=== PATIENT | male | born 1980 | race Caucasian/White ===

== ENCOUNTER 2024-12-19 19:43 | Inpatient (IN) | payer OTHER, SELFPAY ==
[2024-12-19] VITALS (7 sets, daily range): BP systolic 142–187; BP diastolic 73–106; BMI 35.0; BMI 34.3
[2024-12-19 13:45] LABS: Glucose - Point of Care 196 mg/dl (70-99)
--- NOTE | 2024-12-19 16:05 | ED.GENMED ---
History of Present Illness
General
Chief Complaint: Fever
Source: patient
Exam Limitations: none
Time Seen by Provider: 12/19/24 15:25
Nursing documentation reviewed up to this point in time: agreed with
History of Present Illness
History of Present Illness:
44-year-old male incarcerated for about 10 days previous drug use none for years he states previous drinker none for greater than 10 days insulin-dependent diabetic presents with shakes possible chills possibly fevers, he has turner to the bottom of
his feet his neuropathy was walking on concrete/asphalt without any shoes-is unclear if he was on antibiotics at some point, states he did go to urgent care, states he feels short of breath, achy, like he is withdrawing from drugs though he denies
using drugs
Patient apparently was given medication at the senior living including antibiotics and referred here
Patient apparently was walking around barefoot in the senior living the past few days, then developed symptoms today
Review of Systems
Review of Systems
All Other Systems: Not applicable
Constitutional: Reports fever, fatigue, sleep disturbance and chills
EENT: Reports no symptoms
Respiratory: Reports trouble breathing
Cardiac: Reports no symptoms
ABD/GI: Reports no symptoms
Musculoskeletal: Reports muscle stiffness
Phy Exam
Physical Exam
Physical Exam:
Physical Exam
General: Chronically ill shaking
Neck: Dry membranes
Heart: Regular
Lungs: no acute respiratory distress. No wheeze
Abdomen: Soft nontender
Neuro: alert and oriented. no focal neurological deficits
Skin: no rash
Psychiatric: Somewhat disheveled cooperative
Extremities: There is a partial-thickness eschar plantar surface bilateral feet
Course
Orders/Labs/Results
Orders:
Orders
12/19/24 Dinner
2000 calorie (17 carb) Diabetic
At Your Request: Full Participation
12/19/24 15:49
Cardiac Monitoring- Treatment ONCE
12/19/24 15:50
Electrocardiogram (*1) Urgent
Reason for Study: Other
Other Reason for Exam: sepsis
EKG- Treatment ONCE
CR Chest - 2 Views Urgent
Comment:
Reason For Exam: chillls
Foot, Left 3 View [CR Foot - Left Min 3 Views] Urgent
Comment:
Reason For Exam: infection
Foot, Right 3 View [CR Foot - Right Min 3 Views] Urgent
Comment:
Reason For Exam: infection
12/19/24 15:51
Rectal Temp- Treatment ONCE
0.9% Sodium Chloride 1000 ml [Nss] 1,000 ml IV BOLUS
Acetaminophen [Tylenol] 1,000 mg PO NOW STA
12/19/24 16:09
Add On- LAB Urgent
Tests Added?: cpk
12/19/24 16:58
Complete Blood Count/With Diff Urgent
Comprehensive Metabolic Panel Urgent
Creatine Phosphokinase Urgent
Comment: ADD ON
Ferritin Urgent
Comment: ADD ON
Folate Urgent
Comment: ADD ON
Iron Urgent
Comment: ADD ON
Lactic Acid Q4H
Comment: CANCEL 2nd LACTIC ACID IF 1st LACTIC ACID IS LESS THAN 2
Total Iron Binding Urgent
Comment: ADD N
Vitamin B12 Urgent
Comment: ADD ON
Blood Culture Q30M
ANCA Source: Blood/Venous
Specimen Description:
Blood Culture Q30M
ANCA Source: Blood/Venous
Specimen Description:
Influenza A+B Rapid Molecular Urgent
ANCA Source: Nasal Swab
Specimen Description:
12/19/24 17:36
Fentanyl, Urine Urgent
Urinalysis Reflex To Culture Urgent
Date Specimen was Collected: 12/19/24
Time Specimen was Collected: 17:34
Urine Drug Abuse Screen Urgent
Date Specimen was Collected: 12/19/24
Time Specimen was Collected: 17:34
Urine Microscopic Reflex Cult Urgent
12/19/24 18:29
Wound Dressing- Treatment ONCE
Location of Wound: Feet
diazePAM [Valium Injection] 5 mg IV NOW STA
12/19/24 18:53
Piperacillin/Tazo 3.375 Gram [Zosyn] 3.375 gram in 50 ml IV NOW
12/19/24 19:19
Admit/Transfer Patient As Directed
Co-Sign Provider:
Level of Care: Inpatient admission
Assign to:: Telemetry
Physician / Group: Susie
Diagnosis: Foot Wounds
Reason for Telemetry: Arrhythmia
Date to Stop Telemetry: 12/22/24
Time to Stop Telemetry: 11:00
Reason for Hospitalization: IV abx
Expected length of stay greater than two midnights?: Yes
ELOS- Estimated Length of Stay in days: 4
I certify the patient meets the requirements for IP care: Yes
PRN Pain Medication Management As Directed
May give lesser potent ordered pain med per pt: Yes
preference::
Protocol:: Medication orders for pain may be administered in a
manner that supports deferring to patient preference
when the pt is:
- Requesting an ordered lesser potent pain medication.
Least to most potent pain medications are defined
as: acetaminophen < NSAID < tramadol < opioids
(morphine, oxycodone, hydromorphone).
- Requesting a lesser dose of the same medication IF
ORDERED.
- Requesting a less intrusive route of administration
if both routes are prescribed by the provider (PO <
IV).
12/19/24 19:22
Code Status As Directed
Resuscitation Status: Full Code
12/19/24 20:33
Acetaminophen [Tylenol] 650 mg PO Q4HPRN PRN
Dextrose 50%-Water [Dextrose 50% Syringe] 12.5 grams IV [id number] PRN
Glucagon [GlucaGen] 1 mg IM PRN PRN
Ketorolac [Toradol] 15 mg IV Q6HPRN PRN
VANCOMYCIN Pharmacy to Dose [VANCOCIN Pharmacy to Dose] 1 each Pharmacy To Prepare [Call Pharmacy To Prepare] 0 ml IV PER PROTOCOL
12/19/24 20:33
PODIATRY CONSULT Routine
Consulting Provider: Jose Snyder
Was physician already notified: Yes
WOUND/OSTOMY CONSULT Routine
Reason for Consult: bilateral foot wounds
Activity As Directed
Activity Level: Bedrest
Bedside Glucose Monitoring As Directed
Frequency: AC&HS
Additional Instructions:: Change to q6h if pt on TPN, tube feeding or not eating
I&O [Intake/ Output] As Directed
Frequency: q12h
Vital Signs As Directed
Frequency: Per unit guidelines
DX Deep Vein Thrombosis Video Routine
12/20/24 00:00
Piperacillin/Tazo 3.375 Gram [Zosyn] 3.375 gram in 50 ml IV Q6H
12/20/24 07:01
Basic Metabolic Panel IN AM
Complete Blood Count/No Diff IN AM
Glycohemoglobin (HgbA1c) IN AM
Magnesium IN AM
12/20/24 07:30
Insulin Aspart Corrective Mod [Novolog Flexpen-Moderate Resistance] See Protocol SC AC
12/20/24 08:00
Escitalopram Oxalate [Lexapro] 20 mg PO DAILY
Lisinopril [Zestril] 40 mg PO DAILY
Naltrexone HCl [Revia] 50 mg PO DAILY
12/20/24 18:00
Enoxaparin Sodium [Lovenox] 40 mg SC QPM
12/22/24 11:00
DC Protocol for Telemetry ONCE
Abnormal Lab Results
12/19/24 12/19/24 12/19/24
13:43 16:58 17:36
RBC 3.75 L 10^6/uL
(4.70-6.10)
Hgb 11.7 L g/dL
(13.0-18.0)
Hct 34.1 L %
(39.0-52.0)
MCH 31.2 H pg
(27.0-31.0)
Absolute Lymphs (auto) 0.7 L 10^3/uL
(1.2-3.4)
Neutrophils % 79.6 H %
(42.2-75.2)
Lymphocytes % 13.7 L %
(20.5-51.1)
Chloride 110 H mmol/L
(98-107)
Glucose 185 H mg/dl
(70-99)
Iron 38 L ug/dl
(49-181)
TIBC 240 L ug/dl
(261-462)
% Saturation 15 L %
(20-50)
Alkaline Phosphatase 140 H U/L
(38-126)
Urine Ketones 1+ A
(Negative)
Ur Occult Blood Reflex 3+ A
(Negative)
Urine RBC 11-15 A /HPF
(0-2)
Urine Bacteria (Reflex) Few A
(Negative)
Urine Albumin (Reflex) 2+ A
(Neg - Trace)
Ur Buprenorphine Positive H
(Negative)
U Marijuana (THC) Screen Positive H
(Negative)
POC Glucose 196 H mg/dl
(70-99)
12/19/24 16:58
12/19/24 16:58
Vital Signs
Initial and Last Documented VS:
Initial Vital Signs
Temp
98.2 F
12/19/24 13:39
Last Documented Vital Signs
Temp Pulse Resp BP Pulse Ox
99.0 F 78 20 176/107 100
12/21/24 03:00 12/21/24 03:00 12/21/24 03:00 12/21/24 03:00 12/21/24 03:00
MDM/Problems Addressed
Differential Diagnosis Includes:
Infection and electrolyte abnormality drug withdrawal
MDM/Problems Addressed:
Shakes diabetes foot wounds
*Pulse Oximetry
SaO2: 99
Oxygen Mode of Delivery: Room air
Patient hypoxic: no
*Critical Care Note
Total Time (30-74mins, 75-104mins- exclusive of procedures): Not Applicable
Update Note
Update Note:
Update x-rays noted labs noted patient does have some warmth on the plantar dorsum of his foot certainly high risk for infection being diabetic in [facility]
ED Attending Note
-
Portions of this chart may have been created with voice recognition software.� Occasional wrong word or��sound alike� substitutions may have occurred due to the inherent limitations of voice recognition software.
Discharge Plan
Departure
Patient Disposition: Admit
Date of Disposition: 12/19/24
Time of Disposition: 18:54
Admit to: Med/Surg
Presentation/result/management discussed w/ accepting MD/DO: Hospitalist
Patient with high blood pressure during this ER visit?: No
Condition: Fair
Discharge Problem:
Diabetic foot infection
Interventions
Interventions:
*Risk Screen - Suicide Last Done: 12/19/24 16:00
*General Assessment Last Done: 12/19/24 13:39
*Neglect/Abuse Screening Last Done: 12/19/24 16:00
*ED COVID-19 Vaccine History Last Done: 12/19/24 22:13
*Nursing Disposition Last Done: 12/19/24 20:38
ED- Neurological Assessment Last Done: 12/19/24 13:53
ED-Skin Assessment Last Done: 12/19/24 13:53
Discharge Date and Time
Discharge Date/Time: 12/19/24 20:38
[2024-12-19] MEDS: TYLENOL 1000 MG PO (17:07)
[2024-12-19] MEDS: NSS 1000 IV (17:07)
[2024-12-19 17:31] LABS: Hematocrit 34.1 % (39.0-52.0); Hemoglobin 11.7 g/dL (13.0-18.0); Mean Corp Hgb Conc. 34.3 g/dL (33.0-37.0); Mean Corpuscular Volume 90.9 fL (80.0-94.0); Nucleated Red Blood Cells % 0 % (-); Platelet Count 198 10^3/uL (130-400); Red Cell Dist. Width 12.0 % (11.5-14.5)
[2024-12-19 17:40] LABS: ALT (SGPT) 29 U/L (0-50); AST (SGOT) 39 U/L (17-59); Albumin 3.5 g/dl (3.5-5.0); Alkaline Phosphatase 140 U/L (38-126); Blood Urea Nitrogen 14 mg/dl (9-20); Calcium 9.6 mg/dl (8.4-10.2); Carbon Dioxide 22 mmol/L (22-30); Chloride 110 mmol/L (98-107); Estimated Creatinine Clearance > 125 ml/min; Glucose 185 mg/dl (70-99); Potassium 4.3 mmol/L (3.5-5.1); Sodium 139 mmol/L (135-145); Total Protein 7.4 g/dl (6.3-8.2); eGFR > 60.00
[2024-12-19] MEDS: VALIUM INJECTION 5 MG IV (19:13)
[2024-12-19] MEDS: ZOSYN 50 IV (19:17)
[2024-12-19 19:23] LABS: Urine Character Clear (Clear)
--- NOTE | 2024-12-19 19:29 | HPS.HSE ---
Family Physician
-
Family Physician: Facility [facility]
Chief Complaint
-
Fever and Chills
History of Present Illness
Patient is a 44 y/o male past medical history of hypertension and insulin-dependent diabetes mellitus with diabetic neuropathy who presents with fever and chills. Patient states about 2 weeks ago he walked on very hot asphalt in bare feet resulting
in significant turner to his feet. Patient has now been incarcerated at [facility] for the past 10 days. Today patient developed significant rigors with generalized weakness and shortness of breath. Patient notes he has been walking
around the correction barefoot for the past few days. Appears orders were written for IV antibiotics to start at the correction, but order indicates still pending.
Medical History
Past Medical History
Past Medical History: Reports Other
Additional Past Medical History:
Diabetes Mellitus, Insulin-Dependent
Essential Hypertension
Hyperlipidemia
Past Surgical History: Reports Other
Additional Past Surgical History:
Bilateral Leg Fracture Repairs
Social History
Tobacco: Smoker (Occasional cigarettes)
Alcohol: Other (Prior to incarceration patient reports 1 bottle of Vodka per day, but states no alcohol for past 10 days)
Drug: Former User (Denies any drug use for several years)
Family History
Family History: Not pertinent
Allergies / Home Medications
Allergies reflects when Allergies were last updated in [employer].
Home Medications with original date entered in [employer]
Allergy/Medication List:
Allergies
Allergy/AdvReac Type Severity Reaction Status Date / Time
No Known Allergies Allergy Unverified 12/19/24 13:44
Home Medications
acetaminophen 325 mg tablet (Tylenol) 650 mg PO BID 12/19/24
ascorbic acid (vitamin C) 1,000 mg tablet (Vitamin C) 1,000 mg PO DAILY 12/19/24
benazepril 40 mg tablet 40 mg PO DAILY 12/19/24
cefepime 2 gram solution for injection 2 g IV Q12H 12/19/24
escitalopram oxalate 20 mg tablet (Lexapro) 20 mg PO DAILY 12/19/24
ibuprofen 600 mg tablet 600 mg PO BID 12/19/24
insulin glargine 100 unit/mL (3 mL) subcutaneous pen (Lantus Solostar U-100 Insulin) 10 unit SC HS 12/19/24
naltrexone 50 mg tablet 50 mg PO DAILY 12/19/24
vancomycin 1,000 mg intravenous injection 1,200 g IV BID 12/19/24
zinc 100 mg tablet 50 mg PO DAILY 12/19/24
Review of Systems
-
A 12 point ROS was completed and negative except as noted: Yes
Constitutional: Reports Chills
Respiratory: Reports Trouble Breathing; Denies Cough
Cardiac: Denies Chest Pain or Palpitations
Abdomen/GI: Denies Abdominal Pain, Nausea or Vomiting
Physical Exam
Vital Signs
Vital Signs
Temp Pulse Resp BP Pulse Ox
99.7 F 90 25 142/73 99
12/19/24 17:25 12/19/24 19:00 12/19/24 19:00 12/19/24 16:44 12/19/24 16:06
Physical Exam
General: Well Developed, Well Nourished and Chills (Appears Ill)
HEENT: Moist mucous membranes and Other (Poor Dentition)
Respiratory: Clear and Non Labored Respirations
Cardiac: S1/S2, Regular Rhythm and Tachycardia (Slightly)
GI: Soft and Non Tender
Rectal: Deferred by Provider
Musculoskeletal: No Clubbing, No Cyanosis and No Edema
Skin: Warm, Dry and Other (Partial thickness wounds bilateral planter areas)
Neuro: Awake, Alert, Oriented and Nonfocal/grossly intact
Psych: Anxious
Laboratory Results
-
12/19/24 16:58
12/19/24 16:58
Laboratory Results
Lactic Acid 1.5 mmol/L (0.7-2.0) 12/19/24 16:58
Total Bilirubin 0.8 mg/dl (0.2-1.3) 12/19/24 16:58
AST 39 U/L (17-59) 12/19/24 16:58
ALT 29 U/L (0-50) 12/19/24 16:58
Alkaline Phosphatase 140 U/L (38-126) H 12/19/24 16:58
Data Reviewed
-
Diagnostic Radiology: Report Reviewed by me
Lab Data: Labs Reviewed by me
Impression/Plan
-
Infected Foot Wounds
-Consult Podiatry
-Consult Wound Care
-Continue vancomycin and Zosyn
-Await blood cultures
Alcohol Use Disorder
-Patient reports no alcohol since incarceration 10 days ago, but previous was drinking one bottle of vodka per day
-Continue naltrexone
Insulin-Dependent Diabetes Mellitus
-Check HgbA1c
-Continue Lantus
-Monitor sugars and continue coverage insulin
Essential Hypertension
-Continue benazepril with hold parameters
DVT proph: Lovenox
Code Status: Full Code
[2024-12-19 19:49] LABS: Urine Squamous Cell >30 /LPF (Few)
--- NOTE | 2024-12-19 20:08 | W.PN.UPDATE ---
Update Note
Progress Note Update
This is an addendum to H&P written by Nely Lopez on 12/19/2024. �Patient seen and examined independently with PA.
44-year-old male past medical history of hypertension, diabetes, diabetic neuropathy, prior fractures of fibula status post graeme, marijuana user, alcohol user, presenting after he walked on hot asphalt barefoot 2 weeks ago and burned the bottom of
his feet. �Incarcerated for past 10 days. �Today having rigors, sweats with severe wounds on plantar surface of bilateral feet. �Was drinking 1 bottle of vodka every day prior to incarceration 10 days ago as well as using marijuana.
Foot x-ray showed likely old healed bilateral fractures.
Patient not septic but with concern�for infected diabetic wounds of lower extremities.
Blood cultures pending. �Vancomycin/Zosyn. �Podiatry consulted. �Wound care.
Urine drug screen positive for buprenorphine and marijuana.
Patient out of the window for alcohol withdrawal.
[2024-12-19 20:25] LABS: Iron 38 ug/dl (49-181)
[2024-12-19 20:34] LABS: Total Iron Binding Capacity 240 ug/dl (261-462)
[2024-12-19 21:01] LABS: Ferritin 125.0 ng/ml (17.9-464.0)
[2024-12-19 21:33] LABS: Folate 13.1 ng/ml (2.76-20); Vitamin B12 796 pg/ml (239-931)
--- NOTE | 2024-12-19 22:32 | PHA.VAN.IN ---
Assessment
- Assessment
Renal Function: Appears similar to baseline
Concomitant Antimicrobials: ZOSYN, Home med: VANCO 1250 MG & CEFEPIME 2GM IV Q12H (last dose am 12/19)
Plan
- Plan
Initial / Loading Dose: VANCO 1250 MG IV ~2300
Monitoring: VANCO RANDOM ON 12/20 WITH AM LABS
Pharmacokinetics Vancomycin I
- -
Patient Age: 44
Patient Sex: Male
Vancomycin Day #: 1
Indication: Skin And Soft Tissue
Requesting Provider: Nasir Infante
Height / Weight:
Height 6 ft 5 in
Actual Weight 131.088 kg
Pertinent Past Medical History: Diabetes Mellitus
- Vital Signs / Lab Results
Temp Pulse Resp BP Pulse Ox
97.3 F 86 18 186/101 98
12/19/24 21:07 12/19/24 21:07 12/19/24 21:07 12/19/24 21:07 12/19/24 21:07
Lab Results - Hematology
12/19/24
16:58
WBC 5.1
Lab Results - Chemistry
12/19/24
16:58
BUN 14
Creatinine 1.0
Estimated Creat Clear > 125
Albumin 3.5
12/19/24 12/19/24
16:00 16:58
Lactic Acid Cancelled 1.5
Lab Results - Urine
12/19/24
17:36
Urine Nitrite (Reflex) Negative
Leukocyte Esterase Rfl Negative
Urine WBC (Reflex) 3-5
Ur Squamous Epith Cells >30
Urine Bacteria (Reflex) Few A
Microbiology Results
12/19/24 16:58 Influenza Types A & B (MARCELINO) - Final
Nasal Swab Negative for Influenza A & B, NAAT
Negative results must be combined with clinical observations
and patient history.
Nucleic Acid Amplification test (NAAT)performed on the
[employer] NOW platform.
[2024-12-19] MEDS: LANTUS 0.1 UNITS SC (23:14)
[2024-12-19] MEDS: VANCOCIN 275 MG IV (23:14)
[2024-12-19] MEDS: TORADOL 15 MG IV (23:19)
[2024-12-19] MEDS: APRESOLINE 5 MG IV (23:52)
[2024-12-19 23:59] LABS: Glucose - Point of Care 154 mg/dl (70-99)
[2024-12-20] VITALS (9 sets, daily range): BP systolic 165–193; BP diastolic 91–140; PULSE 89; O2SAT 98
[2024-12-20] MEDS: NICODERM TRANSDERMAL 14 MG TRANSDERM ×2 (00:34→08:40)
[2024-12-20] MEDS: ZOSYN 50 IV ×5 (00:34→22:57)
[2024-12-20] MEDS: TYLENOL 650 MG PO ×2 (02:34→21:35)
[2024-12-20] MEDS: TRANDATE 5 MG IV (04:34)
[2024-12-20 06:43] LABS: Glucose - Point of Care 172 mg/dl (70-99)
--- NOTE | 2024-12-20 06:44 | PTCARENOTE ---
Pt c/o unable to sleep throughout the beginning and middle of shift. Fell asleep around 4AM. Woke at 6AM vomiting, visibly tremulous, c/o stomach pain/nausea. HR up to high 90s, BP 170/95 (had received hydralazine and labetalol previously for HTN).
Afebrile 97.6, but c/o feeling hot. Continues to report last drink was 2 weeks ago, denies any other substance use. MSAS at this time scoring a 5. All this relayed to PRIVATE CLIENT ADVISOR, ordered alchol protocol. Ativan dose adminsitered per MSAS score.
[2024-12-20] MEDS: ATIVAN 1 MG PO ×2 (06:49→22:52)
--- NOTE | 2024-12-20 07:56 | PHA.VAN.FU ---
Addendum entered and electronically signed by Katy Soliz [facility] 12/20/24 11:29:
CORRECTION- MAINTENANCE DOSE VANCO 1500 MG Q12H
Original Note:
Vancomycin Assessment / Plan
- Assessment
Renal Function: Stable
WBC's are: WNL
In the past 24 hrs, patient has been: Afebrile
Concomitant Antimicrobials: piperacillin/tazobactam
- Dosing Plan
Adjust Regimen to: vancomycin 1750 mg x 1 followed by vancomycin 1750 mg Q12h
New Regimen Predicts: AUC (465), Peak (29.4), Trough (11.7)
Dosing Comments: Vd-0.6
- Monitoring Plan
No level(s) ordered at this time: consider levels in next few days
- Follow Up
Pharmacy will continue to follow.
Vancomycin Follow UP
- -
Patient Age: 44
Patient Sex: Male
Vancomycin Day #: 2
Indication: Skin And Soft Tissue
Requesting Provider: Nasir Infante
Height / Weight:
Height 6 ft 5 in
Actual Weight 131.088 kg
IBW in k.1
Adjusted BW in k.9
Pertinent Past Medical History: Diabetes Mellitus
- Vital Signs / Lab Results
Temp Pulse Resp BP Pulse Ox
97.6 F 89 22 170/95 99
12/20/24 06:35 12/20/24 06:35 12/20/24 06:35 12/20/24 06:35 12/20/24 06:35
Lab Results - Hematology
12/19/24
16:58
WBC 5.1
Lab Results - Chemistry
12/19/24
16:58
BUN 14
Creatinine 1.0
Estimated Creat Clear > 125
Albumin 3.5
12/19/24 12/19/24
16:00 16:58
Lactic Acid Cancelled 1.5
Lab Results - Urine
12/19/24
17:36
Urine Nitrite (Reflex) Negative
Leukocyte Esterase Rfl Negative
Ur Squamous Epith Cells >30
Microbiology Results
12/19/24 16:58 Influenza Types A & B (MARCELINO) - Final
Nasal Swab Negative for Influenza A & B, NAAT
Negative results must be combined with clinical observations
and patient history.
Nucleic Acid Amplification test (NAAT)performed on the
[employer] NOW platform.
[2024-12-20 08:02] LABS: Hematocrit 32.8 % (39.0-52.0); Hemoglobin 11.2 g/dL (13.0-18.0); Mean Corp Hgb Conc. 34.1 g/dL (33.0-37.0); Mean Corpuscular Volume 90.6 fL (80.0-94.0); Platelet Count 171 10^3/uL (130-400); Red Cell Dist. Width 12.1 % (11.5-14.5)
[2024-12-20 08:08] LABS: Glucose - Point of Care 217 mg/dl (70-99)
[2024-12-20 08:27] LABS: Blood Urea Nitrogen 12 mg/dl (9-20); Calcium 9.0 mg/dl (8.4-10.2); Carbon Dioxide 23 mmol/L (22-30); Chloride 108 mmol/L (98-107); Estimated Creatinine Clearance 118 ml/min; Glucose 170 mg/dl (70-99); Magnesium 1.6 mg/dl (1.6-2.3); Potassium 4.0 mmol/L (3.5-5.1); Sodium 140 mmol/L (135-145); eGFR > 60.00
[2024-12-20] MEDS: VANCOCIN 535 MG IV (08:38)
[2024-12-20] MEDS: ZESTRIL 40 MG PO (08:39)
[2024-12-20] MEDS: REVIA 50 MG PO (08:39)
[2024-12-20] MEDS: LEXAPRO 20 MG PO (08:39)
[2024-12-20] MEDS: THIAMINE INJECTION 200 MG IV ×2 (08:41→21:35)
[2024-12-20] MEDS: NOVOLOG FLEXPEN-MODERATE RESISTANCE 3 UNITS SC ×2 (08:45→12:53)
--- NOTE | 2024-12-20 08:50 | W.PN.HOSP.TC ---
Today's Communication/Plan
-
See PN
Assessment / Plan
Assessment / Plan
44yo M from [facility] after >10 days of incarceration with PMHX of anxiety, alcohol abuse, DM brought with chills for 2 days, he previously burned soles of his feet while walking barefoot on hot asphalt pavement. Also managed for signs of alcohol
withdrawal
A/P:
#B/L wound of soles of the feet
XR without deep wounds
Vanco/Zosyn
folow Bcx
Podiatry consult
#Alcohol abuse with withdrawal
cannot exclude withdrawal from in-[facility] protocol too
Phenobarb taper
MSAS and Ativan PRN
Thiamine/FOlate
D5 IVF initially
#Leukopenia
check for HIV - patient agreeable
#Elevated alk.phos
minimal abd tenderness
US RUQ US reasonable
follow LFT
#Mild anemia of acute disease
anemia w/u neg for deficiencies
#Essential HTN
#DM type 1
Accuchecks, insulin SS, cont lantus, DM diet
cont janak emeds
DVT ppx lovenox
FUll code
I have spent at least 58min reviewing chart, test results, communication with consultants and providing direct patient care
Anticipated Discharge: > 48 hours
Subjective/Interval History
-
Date of Service: December 20, 2024
Objective Data
-
Labs:
Laboratory Results
12/20/24
07:01
WBC 4.4 L
Hgb 11.2 L
Hct 32.8 L
Plt Count 171
Sodium 140
Potassium 4.0
Chloride 108 H
Carbon Dioxide 23
BUN 12
Creatinine 1.2
Glucose 170 H
Calcium 9.0
Vital Signs:
Vital Signs
Temp Pulse Resp BP Pulse Ox
98.4 F 87 18 180/111 98
12/20/24 07:00 12/20/24 07:00 12/20/24 07:00 12/20/24 07:00 12/20/24 07:00
I&O
12/19/24 12/20/24 12/21/24
06:59 06:59 06:59
Intake Total 1440 / 1440
Balance 1440 / 1440
Review of Systems
-
History Source: Patient
All other systems: Reviewed and negative
Constitutional: Reports Chills
Physical Exam
-
General: No Apparent Distress
HEENT: Normocephalic
Respiratory: Clear to Auscultation
Cardiac: Regular Rhythm and Tachycardic; Negative Murmur
GI: Soft, Nondistended and Tender (minimally diffusely)
Musculoskeletal: No Clubbing, No Cyanosis and No Edema
Neuro: Awake, Alert, Oriented, AO x 3, Tremors and Other (tongue fasciculations )
Psych: Calm
--- NOTE | 2024-12-20 08:54 | CM ---
As per H&P and demographics, pt is currently residing at [facility].
PLAN will be for pt to return when medically cleared.
CM consult for substance abuse counseling should be resolved through [facility].
CM will remain available to pt as needs arise.
[2024-12-20 09:10] LABS: Glycohemoglobin (HgbA1c) 7.0 % (4.0-5.6)
[2024-12-20] MEDS: D5LR 1000 IV ×2 (10:04→21:32)
[2024-12-20] MEDS: MAGNESIUM SULFATE 50 IV (10:38)
[2024-12-20] MEDS: PHENOBARBITAL 104 MG IV (10:59)
[2024-12-20 12:22] LABS: Glucose - Point of Care 272 mg/dl (70-99)
--- NOTE | 2024-12-20 13:01 | W.CS.POD ---
Consult Summary - Podiatry
-
This patient is a 44 yo male with past medical history of IDDM with peripheral neuropathy, hypertension, and alcohol abuse, transported from [facility] to the ER and admitted yesterday with chills and sweats for suspected diabetic foot
infections. The patient states, prior to incarceration, about 2 weeks ago he was helping someone with their small boat while standing barefoot on asphalt noticing a bloody foot print when he walked off. Today he denies any fever, chills or sweats,
and minimal discomfort to the feet. He denies any prior history of foot wounds.
-Afebrile, hypertensive.
-Leukopenia, mild anemia.
12/19/24 Right foot xray: There is a mild foreshortening deformity of the proximal phalanx of the right great toe likely representing an old healed fracture. There is also a likely old healed fracture of the base of the proximal phalanx of the right
second toe and proximal phalanx of the left little toe. Evidence of tib-fib fracture repair. There are no findings to suggest focal cortical bony destructive process. There is no radiopaque soft tissue foreign body.
Left foot xray: No overt deformity. There are no findings to suggest focal cortical bony destructive process. There is no radiopaque soft tissue foreign body.
LE Exam:
DP pulses +2/4, bilaterally. PT pulse 0/4, right; +2/4, left.
Delayed capillary filling time to toes. Normal temp.
No edema, cellulitis or lymphangitis note, bilaterally.
Large, well demarcated, partial skin thickness ulcerations spanning the plantar forefoot bilaterally, approximately 8cm x 6cm, with keratotic border. There is a more superficial ulceration of the plantar central left heel with dry epidermal peeling
noted. The base of the wounds are dry, stable and granular in nature. There is no serous, blood or purulent dicharge. No malodoror acute process noted.\\
Significant loss of protective sensation of the feet, however there is pain elicited with moderate pressure to the forefoot wound area.
Assessment:
Moderate widespread ulcerations of the soles of both feet due to thermal exposure, clinically stable.
IDDM with diabetic peripheral neuropathy.
H/O Alcohol abuse.
Plan:
Wounds are clinically stable. No surgical intervention necessary.
Consult wound care for dressings. He will need to remain NWB upon discharge until healing progresses. Perhaps a wheel chair at the correctional facility.
Please reconsult as necessary.
[2024-12-20] MEDS: PHENOBARBITAL 97.5 MG IV ×2 (15:09→21:39)
--- NOTE | 2024-12-20 16:35 | PTCARENOTE ---
pt asking for Valium, hydralazine, Ambien or a sleep aide. Reviewed sleep agents are typically used at night. Pt upset stating the ativan and phenobarb are not working, This nurse reviewed tremors and jittery behaviors have improved since phenobarb,
pt stated 'but I need something to help me sleep'. Education provided surrounding withdraw protocol, pt states he is not going through withdraw.
[2024-12-20 17:01] LABS: Glucose - Point of Care 177 mg/dl (70-99)
[2024-12-20] MEDS: LOVENOX 40 MG SC (17:16)
[2024-12-20] MEDS: NOVOLOG FLEXPEN-MODERATE RESISTANCE 1 UNITS SC (17:24)
[2024-12-20] MEDS: VANCOCIN 530 MG IV (18:13)
[2024-12-20 21:31] LABS: Glucose - Point of Care 228 mg/dl (70-99)
[2024-12-20] MEDS: LANTUS 0.1 UNITS SC (21:33)
[2024-12-20] MEDS: MELATONIN 5 MG PO (21:35)
[2024-12-20] MEDS: TRANDATE 10 MG IV (21:44)
--- NOTE | 2024-12-20 22:30 | PTCARENOTE ---
Pt witnessed ambulating to bathroom with guards. Pt informed of NWB status from podiatry and reasoning for. Pt stated 'I'm not gonna follow that when I get back to prison so why start now'. Wheelchair available in bathroom - guard removed as pt
requested. Pt refusing to stay off of feet despite education. Dressings bloody and changed.
[2024-12-21] VITALS (8 sets, daily range): BP systolic 171–204; BP diastolic 103–119
[2024-12-21] MEDS: ZOSYN 50 IV ×4 (05:21→23:44)
[2024-12-21] MEDS: D5LR IV (05:26)
[2024-12-21 05:46] LABS: Hematocrit 31.0 % (39.0-52.0); Hemoglobin 10.8 g/dL (13.0-18.0); Mean Corp Hgb Conc. 34.8 g/dL (33.0-37.0); Mean Corpuscular Volume 90.9 fL (80.0-94.0); Nucleated Red Blood Cells % 0 % (-); Platelet Count 144 10^3/uL (130-400); Red Cell Dist. Width 12.2 % (11.5-14.5)
[2024-12-21 06:06] LABS: ALT (SGPT) 26 U/L (0-50); AST (SGOT) 28 U/L (17-59); Albumin 3.1 g/dl (3.5-5.0); Alkaline Phosphatase 103 U/L (38-126); Blood Urea Nitrogen 8 mg/dl (9-20); Calcium 8.8 mg/dl (8.4-10.2); Carbon Dioxide 24 mmol/L (22-30); Chloride 110 mmol/L (98-107); Estimated Creatinine Clearance > 125 ml/min; Glucose 143 mg/dl (70-99); Magnesium 1.8 mg/dl (1.6-2.3); Potassium 3.8 mmol/L (3.5-5.1); Sodium 139 mmol/L (135-145); Total Protein 6.6 g/dl (6.3-8.2); eGFR > 60.00
[2024-12-21] MEDS: VANCOCIN 530 MG IV ×2 (07:21→17:50)
[2024-12-21 08:08] LABS: Glucose - Point of Care 173 mg/dl (70-99)
[2024-12-21] MEDS: NOVOLOG FLEXPEN-MODERATE RESISTANCE 1 UNITS SC (08:37)
[2024-12-21] MEDS: REVIA 50 MG PO (08:39)
[2024-12-21] MEDS: LEXAPRO 20 MG PO (08:39)
[2024-12-21] MEDS: ZESTRIL 40 MG PO (08:39)
[2024-12-21] MEDS: FOLVITE 1 MG PO (08:39)
[2024-12-21] MEDS: THIAMINE INJECTION 200 MG IV ×2 (08:40→22:15)
[2024-12-21] MEDS: PHENOBARBITAL 97.5 MG IV ×3 (08:43→22:17)
[2024-12-21] MEDS: NICODERM TRANSDERMAL 14 MG TRANSDERM (08:48)
--- NOTE | 2024-12-21 09:22 | PHA.VAN.FU ---
Vancomycin Assessment / Plan
- Assessment
Renal Function: Stable
WBC's are: WNL
In the past 24 hrs, patient has been: Afebrile
Concomitant Antimicrobials: piperacillin/tazobactam
- Assessment - Therapeutic Drug Monitoring
Random Level: 15.8 ( drawn approx. 11 hrs post dose)
- Dosing Plan
Continue: vancomycin 1500 mg Q12H
- Monitoring Plan
Peak Level: 12/21 2129
Trough Level: 12/22 529
- Follow Up
Pharmacy will continue to follow.
Vancomycin Follow UP
- -
Patient Age: 44
Patient Sex: Male
Vancomycin Day #: 3
Indication: Skin And Soft Tissue
Requesting Provider: Nasir Infante
Height / Weight:
Height 6 ft 5 in
Actual Weight 131.088 kg
IBW in k.1
Adjusted BW in k.9
Pertinent Past Medical History: Diabetes Mellitus
- Vital Signs / Lab Results
Temp Pulse Resp BP Pulse Ox
98.0 F 83 20 195/116 98
12/21/24 07:00 12/21/24 08:39 12/21/24 07:00 12/21/24 08:39 12/21/24 07:00
Lab Results - Hematology
12/19/24 12/20/24 12/21/24
16:58 07:01 04:51
WBC 5.1 4.4 L 4.7 L
Lab Results - Chemistry
12/19/24 12/20/24 12/21/24
16:58 07:01 04:51
BUN 14 12 8 L
Creatinine 1.0 1.2 1.0
Estimated Creat Clear > 125 118 > 125
Albumin 3.5 3.1 L
12/19/24 12/19/24
16:00 16:58
Lactic Acid Cancelled 1.5
Microbiology Results
12/20/24 04:04 MRSA Screen - Final
Nose Staph aureus MRSA
12/19/24 16:58 Blood Culture - Preliminary
Blood/Venous No Growth in 24 hours- Final report to follow
12/19/24 16:58 Blood Culture - Preliminary
Blood/Venous No Growth in 24 hours- Final report to follow
12/19/24 16:58 Influenza Types A & B (MARCELINO) - Final
Nasal Swab Negative for Influenza A & B, NAAT
Negative results must be combined with clinical observations
and patient history.
Nucleic Acid Amplification test (NAAT)performed on the
NuPathe platform.
Therapeutic Drug Monitoring
Random Vancomycin 15.8 ug/ml 12/21/24 04:51
--- NOTE | 2024-12-21 10:53 | W.PN.HOSP.TC ---
Today's Communication/Plan
-
cont abx until Cx
cont phenobarb taper
Assessment / Plan
Assessment / Plan
44yo M from [facility] after >10 days of incarceration with PMHX of anxiety, alcohol abuse, DM brought with chills for 2 days, he previously burned soles of his feet while walking barefoot on hot asphalt pavement. Also managed for signs of alcohol
withdrawal
A/P:
#B/L wound of soles of the feet
XR without deep wounds
Vanco/Zosyn
follow Bcx
Podiatry consult: NWB and wheelchair until healed
#Alcohol abuse with withdrawal
cannot exclude withdrawal from in-assisted protocol too
Phenobarb taper
MSAS and Ativan PRN
Thiamine/FOlate
D5 IVF initially
#Leukopenia
check for HIV neg
#Elevated alk.phos
resolved
US RUQ US Hepatosplenomegaly. Otherwise essentially unremarkable abdominal ultrasound
#Mild anemia of acute disease
anemia w/u neg for deficiencies
#Essential HTN
#DM type 1
Accuchecks, insulin SS, cont lantus, DM diet
cont home emeds
DVT ppx lovenox
FUll code
I have spent at least 36min reviewing chart, test results, communication with consultants and providing direct patient care
Anticipated Discharge: 24 - 48 hours
Subjective/Interval History
-
Date of Service: December 21, 2024
Objective Data
-
Labs:
Laboratory Results
12/21/24
04:51
WBC 4.7 L
Hgb 10.8 L
Hct 31.0 L
Plt Count 144
Sodium 139
Potassium 3.8
Chloride 110 H
Carbon Dioxide 24
BUN 8 L
Creatinine 1.0
Glucose 143 H
Calcium 8.8
Total Bilirubin 0.6
AST 28
ALT 26
Alkaline Phosphatase 103
Vital Signs:
Vital Signs
Temp Pulse Resp BP Pulse Ox
98.0 F 83 20 195/116 98
12/21/24 07:00 12/21/24 08:39 12/21/24 07:00 12/21/24 08:39 12/21/24 07:00
I&O
12/20/24 12/21/24 12/22/24
06:59 06:59 06:59
Intake Total 1440 / 1440 3850 / 3850
Output Total 250 / 250
Balance 1440 / 1440 3600 / 3600
Review of Systems
-
History Source: Patient
All other systems: Reviewed and negative
Physical Exam
-
General: No Apparent Distress
Respiratory: Clear to Auscultation
GI: Soft, Nontender and Nondistended
Neuro: Awake, Alert, Oriented and AO x 3
Psych: Calm
[2024-12-21] MEDS: TRANDATE 10 MG IV ×2 (11:19→22:23)
[2024-12-21 12:22] LABS: Glucose - Point of Care 249 mg/dl (70-99)
[2024-12-21] MEDS: CATAPRES 0.1 MG PO ×2 (12:48→22:15)
[2024-12-21] MEDS: NOVOLOG FLEXPEN-MODERATE RESISTANCE 3 UNITS SC ×2 (12:48→17:07)
[2024-12-21 16:44] LABS: Glucose - Point of Care 245 mg/dl (70-99)
[2024-12-21] MEDS: LOVENOX 40 MG SC (17:07)
--- NOTE | 2024-12-21 18:04 | PTCARENOTE ---
MD notified about pt's high BPs. States that it could be related to withdrawal and anxiety. New order for Catapres. Medication given and effective to bring down BP. Plan of care ongoing.
[2024-12-21 21:36] LABS: Glucose - Point of Care 149 mg/dl (70-99)
[2024-12-21] MEDS: MELATONIN 5 MG PO (22:16)
[2024-12-21] MEDS: LANTUS 0.1 UNITS SC (22:16)
[2024-12-22] MEDS: BENADRYL 25 MG PO (00:59)
[2024-12-22 03:00] VITALS: BP 162/98
[2024-12-22] MEDS: CATAPRES 0.1 MG PO ×2 (04:59→11:32)
[2024-12-22 05:04] VITALS: BP 210/128
[2024-12-22] MEDS: ZOSYN 50 IV ×4 (05:06→23:28)
[2024-12-22] MEDS: TRANDATE 10 MG IV ×2 (05:07→15:39)
[2024-12-22] MEDS: VANCOCIN 530 MG IV (06:56)
[2024-12-22 07:52] VITALS: BP 180/108
[2024-12-22 07:57] LABS: Glucose - Point of Care 138 mg/dl (70-99)
[2024-12-22] MEDS: NOVOLOG FLEXPEN-MODERATE RESISTANCE SC (08:01)
[2024-12-22] MEDS: FOLVITE 1 MG PO (08:24)
[2024-12-22] MEDS: LEXAPRO 20 MG PO (08:24)
[2024-12-22] MEDS: REVIA 50 MG PO (08:24)
[2024-12-22] MEDS: PHENOBARBITAL 97.5 MG IV (08:24)
[2024-12-22] MEDS: ZESTRIL 40 MG PO (08:25)
[2024-12-22] MEDS: THIAMINE INJECTION 200 MG IV ×3 (08:25→21:22)
[2024-12-22] MEDS: NICODERM TRANSDERMAL 14 MG TRANSDERM (08:27)
--- NOTE | 2024-12-22 09:15 | CM ---
Pt admitted from [facility] with foot wounds.
Per Podiatry, pt is NWB/Wheelchair until healed.
[facility] will follow for [facility] planning
[phone]
--- NOTE | 2024-12-22 09:25 | PHA.VAN.FU ---
Vancomycin Assessment / Plan
- Assessment
Renal Function: Stable
In the past 24 hrs, patient has been: Afebrile
Concomitant Antimicrobials: piperacillin/tazobactam
- Assessment - Therapeutic Drug Monitoring
Extrapolated Cmax (mcg/mL): 34.4
Peak level was drawn: Appropriately (drawn ~2.7 H after end of previous infusion)
Extrapolated Cmin (mcg/mL): 15.8
Trough Drawn: Appropriately
Levels were drawn: At steady state (levels drawn after 3rd maintenance dose)
Calculated AUC (mcg*h/mL): 577
Calculated ke: 0.0743
Calculated half life (H): 9.3
Calculated Vd (L): 70 (~0.5 L/kg)
Calculated Vanc CL (ml/min): 87
- Dosing Plan
Adjust Regimen to: Vanc 1250mg Q12H
New Regimen Predicts: AUC (508), Peak (30.3), Trough (13.9)
- Monitoring Plan
No level(s) ordered at this time: consider levels in next few days
- Follow Up
Pharmacy will continue to follow.
Vancomycin Follow UP
- -
Patient Age: 44
Patient Sex: Male
Vancomycin Day #: 4
Indication: Skin And Soft Tissue
Requesting Provider: Nasir Infante
Pertinent Antimicrobial Allergies:
NKDA
Height / Weight:
Height 6 ft 5 in
Actual Weight 131.088 kg
Pertinent Past Medical History: DM, BMI ~34
- Vital Signs / Lab Results
Temp Pulse Resp BP Pulse Ox
98.5 F 69 16 180/108 99
12/22/24 07:52 12/22/24 08:25 12/22/24 07:52 12/22/24 08:25 12/22/24 07:52
Lab Results - Hematology
12/19/24 12/20/24 12/21/24
16:58 07:01 04:51
WBC 5.1 4.4 L 4.7 L
Lab Results - Chemistry
12/19/24 12/20/24 12/21/24
16:58 07:01 04:51
BUN 14 12 8 L
Creatinine 1.0 1.2 1.0
Estimated Creat Clear > 125 118 > 125
Albumin 3.5 3.1 L
12/19/24 12/19/24
16:00 16:58
Lactic Acid Cancelled 1.5
Microbiology Results
12/19/24 16:58 Blood Culture - Preliminary
Blood/Venous No Growth in 48 hours- Final report to follow
12/19/24 16:58 Blood Culture - Preliminary
Blood/Venous No Growth in 48 hours- Final report to follow
12/20/24 04:04 MRSA Screen - Final
Nose Staph aureus MRSA
Therapeutic Drug Monitoring
Vancomycin Peak 28.1 ug/ml (18-26) H 12/21/24 22:03
Vancomycin Trough 16.0 ug/ml (5-20) 12/22/24 05:38
Random Vancomycin 15.8 ug/ml 12/21/24 04:51
--- NOTE | 2024-12-22 09:45 | W.PN.HOSP.TC ---
Today's Communication/Plan
-
Improved withdrawal symptoms
Complete titration of Phenobarb and D/C tomorrow
Assessment / Plan
Assessment / Plan
44yo M from [facility] after >10 days of incarceration with PMHX of anxiety, alcohol abuse, DM brought with chills for 2 days, he previously burned soles of his feet while walking barefoot on hot asphalt pavement. Also managed for signs of alcohol
withdrawal. No need in I&D as per podiatry, but non-weight baring with wheelchair recommended until feet heal.
A/P:
#B/L wound of soles of the feet
XR without deep wounds
Vanco/Zosyn
follow Bcx
Podiatry consult: NWB and wheelchair until healed
#Alcohol abuse with withdrawal
cannot exclude withdrawal from in-long-term protocol too
Phenobarb taper
MSAS and Ativan PRN
Thiamine/FOlate
D5 IVF initially
#Leukopenia
check for HIV neg
#Elevated alk.phos
resolved
US RUQ US Hepatosplenomegaly. Otherwise essentially unremarkable abdominal ultrasound
#Mild anemia of acute disease
anemia w/u neg for deficiencies
#Essential HTN
#DM type 1
Accuchecks, insulin SS, cont lantus, DM diet
cont home emeds
DVT ppx lovenox
FUll code
I have spent at least 36min reviewing chart, test results, communication with consultants and providing direct patient care
Anticipated Discharge: Within 24 hours
Subjective/Interval History
-
Date of Service: December 22, 2024
Objective Data
-
Vital Signs:
Vital Signs
Temp Pulse Resp BP Pulse Ox
98.5 F 69 16 180/108 99
12/22/24 07:52 12/22/24 08:25 12/22/24 07:52 12/22/24 08:25 12/22/24 07:52
I&O
12/21/24 12/22/24 12/23/24
06:59 06:59 06:59
Intake Total 3850 / 3850 1440 / 1440 1440 / 1440
Output Total 250 / 250 2150 / 2150 2024 / 2024
Balance 3600 / 3600 -710 / -710 -585 / -585
Review of Systems
-
History Source: Patient
All other systems: Reviewed and negative
Physical Exam
-
General: No Apparent Distress
HEENT: Normocephalic
Cardiac: Regular Rhythm; Negative Murmur
Neuro: Awake, Alert, Oriented and AO x 3
Psych: Calm
[2024-12-22 11:30] VITALS: BP 180/108
[2024-12-22 12:18] LABS: Glucose - Point of Care 188 mg/dl (70-99)
--- NOTE | 2024-12-22 12:29 | WOUNDNOTE ---
L PLANTAR FOOT DISTAL
--- NOTE | 2024-12-22 12:30 | WOUNDNOTE ---
R DISTAL PLANTAR FOOT
--- NOTE | 2024-12-22 12:31 | WOUNDNOTE ---
[facility] RN note: Patient admitted with diabetic foot infection.
See H&P for complete history.
PMH: Patient is a 44 y/o male past medical history of hypertension and insulin-dependent diabetes mellitus with diabetic neuropathy who presents with fever and chills. Patient states about 2 weeks ago he walked on very hot asphalt in bare feet
resulting in significant turner to his feet.
Wound Location and type/assessment: Patient admitted with: healing turner to plantar feet. Unsure of what stage burn they were when started a few wks ago. Today base of wounds pale pink, no odor and serosanguineous drainage. Callus and dry blisters
to periwound. Patient states he has used a 'white cream' for wounds before. Has not been able to be off feet at alf patient admits. Patient states if he needs to use a wheelchair as recommended by Dr. Snyder, then he may need to be on a different
unit. 'That's something the [facility] will figure out' he states.
Appetite: Good.
Pressure redistribution devices in place:Versa care air. Pillow under calves, heels intact.
Plan: Will order Silvadene, adaptic and dry dressing, local wound care applied today. NWB per Podiatry.
Will confirm orders with hospitalist and updated nurse Marguerite.
Updated care plan and will follow as needed.
Note to case management of equipment requested for discharge: wound care.
[2024-12-22] MEDS: NOVOLOG FLEXPEN-MODERATE RESISTANCE 1 UNITS SC ×2 (12:39→17:16)
[2024-12-22] MEDS: LUMINAL 64.8 MG PO ×2 (15:27→21:21)
[2024-12-22 15:30] VITALS: BP 182/112
[2024-12-22] MEDS: TYLENOL 650 MG PO (16:11)
[2024-12-22 17:05] LABS: Glucose - Point of Care 161 mg/dl (70-99)
[2024-12-22] MEDS: LOVENOX 40 MG SC (17:16)
[2024-12-22] MEDS: VANCOCIN 275 MG IV (17:52)
[2024-12-22 21:16] LABS: Glucose - Point of Care 190 mg/dl (70-99)
[2024-12-22] MEDS: CATAPRES 0.3 MG PO (21:17)
[2024-12-22] MEDS: MELATONIN 5 MG PO (21:22)
[2024-12-22] MEDS: LANTUS 0.1 UNITS SC (21:23)
[2024-12-22 23:00] VITALS: BP 171/100
[2024-12-23 03:00] VITALS: BP 176/100
[2024-12-23] MEDS: CATAPRES 0.3 MG PO ×2 (03:16→12:12)
[2024-12-23] MEDS: ZOSYN 50 IV ×2 (05:20→12:05)
[2024-12-23] MEDS: VANCOCIN 275 MG IV (05:58)
[2024-12-23 07:30] VITALS: BP 169/105
[2024-12-23] MEDS: FOLVITE 1 MG PO (07:52)
[2024-12-23] MEDS: REVIA 50 MG PO (07:52)
[2024-12-23] MEDS: ZESTRIL 40 MG PO (07:52)
[2024-12-23] MEDS: LUMINAL 64.8 MG PO (07:52)
[2024-12-23] MEDS: PROCARDIA XL (EXTENDED RELEASE) 30 MG PO (07:53)
[2024-12-23] MEDS: LEXAPRO 20 MG PO (08:03)
[2024-12-23] MEDS: NICODERM TRANSDERMAL 14 MG TRANSDERM (08:04)
[2024-12-23 08:20] LABS: Glucose - Point of Care 161 mg/dl (70-99)
--- NOTE | 2024-12-23 08:53 | PHA.VAN.FU ---
Addendum entered and electronically signed by Keisha Scales RPH 12/23/24 09:12:
Agree with assessment and plan
Original Note:
Vancomycin Assessment / Plan
- Assessment
Renal Function: No New Labs Today
In the past 24 hrs, patient has been: Afebrile
Concomitant Antimicrobials: piperacillin/tazobactam
- Dosing Plan
Continue: 1250mg q12h
- Monitoring Plan
No level(s) ordered at this time: consider within next few days
- Follow Up
Pharmacy will continue to follow.
Vancomycin Follow UP
- -
Patient Age: 44
Patient Sex: Male
Vancomycin Day #: 5
Indication: Skin And Soft Tissue
Requesting Provider: Nasir Infante
Pertinent Antimicrobial Allergies:
NKDA
Height / Weight:
Height 6 ft 5 in
Actual Weight 131.088 kg
IBW in k.1
Adjusted BW in k.9
Pertinent Past Medical History: DM, BMI ~34
- Vital Signs / Lab Results
Temp Pulse Resp BP Pulse Ox
98.2 F 69 16 169/105 98
12/23/24 07:30 12/23/24 07:30 12/23/24 07:30 12/23/24 07:30 12/23/24 07:30
Lab Results - Hematology
12/21/24
04:51
WBC 4.7 L
Lab Results - Chemistry
12/21/24
04:51
BUN 8 L
Creatinine 1.0
Estimated Creat Clear > 125
Albumin 3.1 L
Microbiology Results
12/19/24 16:58 Blood Culture - Preliminary
Blood/Venous No Growth in 72 hours- Final report to follow
12/19/24 16:58 Blood Culture - Preliminary
Blood/Venous No Growth in 72 hours- Final report to follow
12/20/24 04:04 MRSA Screen - Final
Nose Staph aureus MRSA
Therapeutic Drug Monitoring
Vancomycin Peak 28.1 ug/ml (18-26) H 12/21/24 22:03
Vancomycin Trough 16.0 ug/ml (5-20) 12/22/24 05:38
Random Vancomycin 15.8 ug/ml 12/21/24 04:51
[2024-12-23] MEDS: NOVOLOG FLEXPEN-MODERATE RESISTANCE 1 UNITS SC (09:53)
--- NOTE | 2024-12-23 10:40 | W.PN.HOSP.TC ---
Today's Communication/Plan
-
dc
Assessment / Plan
Assessment / Plan
44yo M from [facility] after >10 days of incarceration with PMHX of anxiety, alcohol abuse, DM brought with chills for 2 days, he previously burned soles of his feet while walking barefoot on hot asphalt pavement. Also managed for signs of alcohol
withdrawal. No need in I&D as per podiatry, but non-weight baring on b/l LE with wheelchair recommended until feet heal. BP mediations started and further to be adjusted upon d/c. Withdrawal successfully resolved. Bcx remain neg. Resonable to d/c on
10 7 more days of Augmentin+Doxy (MRSA pos PCR screen). Medically stable for d/c to [facility].
A/P:
#B/L wound of soles of the feet
XR without deep wounds
Vanco/Zosyn
follow Bcx
Podiatry consult: NWB and wheelchair until healed
#Alcohol abuse with withdrawal
cannot exclude withdrawal from in-correction protocol too
Phenobarb taper
MSAS and Ativan PRN
Thiamine/FOlate
D5 IVF initially
#Leukopenia
check for HIV neg
#Elevated alk.phos
resolved
US RUQ US Hepatosplenomegaly. Otherwise essentially unremarkable abdominal ultrasound
#Mild anemia of acute disease
anemia w/u neg for deficiencies
#Essential HTN
#DM type 1
Accuchecks, insulin SS, cont lantus, DM diet
cont home emeds
DVT ppx lovenox
FUll code
I have spent at least 36min reviewing chart, test results, communication with consultants and providing direct patient care
Anticipated Discharge: Today
Subjective/Interval History
-
Date of Service: December 23, 2024
Objective Data
-
Vital Signs:
Vital Signs
Temp Pulse Resp BP Pulse Ox
98.2 F 69 16 169/105 98
12/23/24 07:30 12/23/24 07:30 12/23/24 07:30 12/23/24 07:30 12/23/24 07:30
I&O
12/22/24 12/23/24 12/24/24
06:59 06:59 06:59
Intake Total 1440 / 1440 3980 / 3980
Output Total 2150 / 2150 4475 / 4475
Balance -710 / -710 -495 / -495
Review of Systems
-
History Source: Patient
All other systems: Reviewed and negative
Physical Exam
-
General: No Apparent Distress
HEENT: Normocephalic
Neuro: Awake, Alert, Oriented and AO x 3; Negative Tremors
Psych: Calm
--- NOTE | 2024-12-23 10:47 | W.DCSUMMARY ---
Discharge Summary
Discharge Data
Date of Admission: 12/19/24
Date of Discharge: 12/23/24
-
Pending Results: No
Hospital Course
44yo M from [facility] after >10 days of incarceration with PMHX of anxiety, alcohol abuse, DM brought with chills for 2 days, he previously burned soles of his feet while walking barefoot on hot asphalt pavement. Also managed for signs of alcohol
withdrawal. No need in I&D as per podiatry, but non-weight baring on b/l LE with wheelchair recommended until feet heal. BP mediations started and further to be adjusted upon d/c. Withdrawal successfully resolved. Bcx remain neg. Resonable to d/c on
10 7 more days of Augmentin+Doxy (MRSA pos PCR screen). Medically stable for d/c to [facility].
I have spent at least 36min reviewing chart, test results, communication with consultants and providing direct patient care
Patient was managed for:
#B/L wound of soles of the feet
#Alcohol abuse with withdrawal
#Leukopenia
#Elevated alk.phos
#Mild anemia of acute disease
#Essential HTN
#DM type 1
Discharge Plan
-
Patient Disposition: Shelter
Discharge Diagnosis/Procedures: b/l feet wounds
Condition: Fair
Diet: Diabetic, Carb Controlled
Additional Activity: non-weight baring on b/l LE with wheelchair recommended until feet heal
Activity Restrictions/Additional Instructions:
Wound Care Instructions
Plantar feet: clean with saline or soap and water, Silvadene to open ulcers, adaptic and dry dressing change daily and prn drainage.
Non weight bearing, can pivot to wheelchair during day.
Follow up with Podiatry.
Referrals:
[facility] [Family Provider, General]
Prescriptions:
New
amoxicillin-pot clavulanate 875-125 mg tablet
1 tab feeding tube Q12H Qty: 14 0RF
doxycycline hyclate 100 mg capsule
100 mg PO BID Qty: 14 0RF
clonidine HCl 0.3 mg Tablet
0.3 mg PO Q8H Qty: 90 0RF
nifedipine 30 mg Tablet Extended Release
30 mg PO DAILY Qty: 30 0RF
folic acid 1 mg Tablet
1 mg PO DAILY Qty: 30 0RF
thiamine mononitrate (vit B1) 100 mg Tablet
100 mg PO DAILY Qty: 30 0RF
Continued
ascorbic acid (vitamin C) [Vitamin C] 1,000 mg Tablet
1,000 mg PO DAILY
naltrexone 50 mg Tablet
50 mg PO DAILY
benazepril 40 mg Tablet
40 mg PO DAILY
escitalopram oxalate [Lexapro] 20 mg Tablet
20 mg PO DAILY
insulin glargine [Lantus Solostar U-100 Insulin] 100 unit/mL (3 mL) Insulin Pen
10 unit SC HS
Discontinued
Zinc Chelate 100 mg Tablet
50 mg PO DAILY
acetaminophen [Tylenol] 325 mg Tablet
650 mg PO BID
cefepime 2 gram Recon Soln
2 g IV Q12H
vancomycin 1,000 mg Recon Soln
1,200 g IV BID
ibuprofen 600 mg Tablet
600 mg PO BID
Discharge Orders:
Discharge Patient (As Directed); Ordered 12/23/24
Ordered By: Mike Wilkinson
Discharge Date and Time
Print Language: SPANISH
--- NOTE | 2024-12-23 11:01 | CM ---
Patient for d/c back to [facility] today,
Pt admitted from [facility] with foot wounds.
[facility].
Per Jim fax machine is working.
Clinicals faxed.
Plan: d/c back to [facility] today
[facility]: [phone]
[facility]
[2024-12-23 11:48] LABS: Glucose - Point of Care 246 mg/dl (70-99)
[2024-12-23] MEDS: SILVADENE 1 APPLIC TOPICAL (12:06)
[2024-12-23] MEDS: NOVOLOG FLEXPEN-MODERATE RESISTANCE 3 UNITS SC (13:51)
--- NOTE | 2024-12-23 15:29 | PTCARENOTE ---
pt with no s/s of alcohol withdrawal, calm and cooperative, shackled to bed, 2 senior care guards at bedside, tolerating diet, no complaints, vss, for discharge back to senior care today, will continue to monitor.
[2024-12-23 16:00] VITALS: BP 166/94
[2024-12-23] MEDS: LUMINAL 32.4 MG PO (16:31)
== END 2024-12-23 18:07 | DRG 935 ==
LOC: 3 WEST ACU 19:43
PROVIDERS: Physician Assistant Medical; ADMITTING PHYSICIAN Hospitalist; ATTENDING PHYSICIAN Internal Medicine; CONSULT PHYSICIAN Podiatrist Foot & Ankle Surgery; EMERGENCY PHYSICIAN Emergency Medicine
DX: T25.022A Burn of unspecified degree of left foot, initial encounter (principal); F10.139 Alcohol abuse with withdrawal, unspecified; T25.021A Burn of unspecified degree of right foot, initial encounter; F17.210 Nicotine dependence, cigarettes, uncomplicated; I10 Essential (primary) hypertension; E78.5 Hyperlipidemia, unspecified; D72.819 Decreased white blood cell count, unspecified; D64.9 Anemia, unspecified; E10.42 Type 1 diabetes mellitus with diabetic polyneuropathy; X19.XXXA Contact with other heat and hot substances, initial encounter
CPT/HCPCS: 71046; 73630; 76700; 80048; 80053; 80202; 80306; 80307; 81003; 81015; 82550; 82607; 82728; 82746; 82962; 83036; 83540; 83550; 83605; 83735; 84100; 85025; 85027; 87040; 87070; 87147; 87389; 87502; 93005; 96361; 96365; 96375; 97162; 97166; 99285